=== PATIENT | male | born 1960 | race Caucasian/White ===

== ENCOUNTER 2022-05-07 10:30 | Emergency (ER) | payer BC ==
[~2022-05-07] VITALS: Ht 170.2 cm; Wt 73.0 kg
[2022-05-07] MEDS ORDERED: PREZISTA75 MG PO (11:09)
[2022-05-07] MEDS ORDERED: NORVIR100 M1 PO (11:09)
[2022-05-07 11:14] LABS: HEMATOCRIT 39.3 % (39.0-50.0); HEMOGLOBIN 13.5 g/dl (14.0-18.0); IMMATURE GRANULOCYTES 0.1 % (0.0-5.0); MEAN CELL VOLUME 93.6 fL CALC (80.0-100.0); MEAN CORPUSCULAR HGB 32.1 pG CALC (26.0-32.0); MEAN CORPUSCULAR HGB CONC 34.4 g/dL CAL (32.0-36.0); NEUT# 5.83 thou/uL (1.82-7.42); RED BLOOD COUNT 4.2 mill/uL (4.70-6.10); RED CELL DISTRI WIDTH 11.9 % (11.5-15.5)
[2022-05-07 11:37] LABS: ALBUMIN 4.3 g/dL (3.2-5.0); ALKALINE PHOSPHATASE 73 u/l (38-126); ANION GAP 16 (6-22 (CALC)); BUN 10 mg/dL (8-23); BUN/CREATININE RATIO 12 (12-20 (CALC)); CARBON DIOXIDE 22 mmol/l (22-30); CHLORIDE 101 mmol/l (95-108); CREATININE 0.8 mg/dL (0.7-1.3); GFR FOR AFR.AMER. > 60 ML/MIN (>=60 (CALC)); GFR OTHER RACES > 60 ML/MIN (>=60 (CALC)); POTASSIUM 3.8 mmol/l (3.5-5.1); SGOT/AST 107 u/l (19-48); SODIUM 135 mmol/l (137-146)
[2022-05-07] MEDS ORDERED: AMOX/K CLAV875 M1 PO (12:24)
[2022-05-07] MEDS ORDERED: HYDROCO/APAP1 TA9 PO (12:25)
[2022-05-07] MEDS ORDERED: SILVADENE1 % EX (12:30)
[2022-05-07 12:52] VITALS: BP 112/79
== END 2022-05-07 13:01 | disposition left against medical advice (07) | DRG 935 ==
LOC: ED 10:30
PROVIDERS: Family Medicine
DX: T20.20XA Burn of second degree of head, face, and neck, unspecified site, initial encounter (principal); T20.211A Burn of second degree of right ear [any part, except ear drum], initial encounter; T31.0 Burns involving less than 10% of body surface; X04.XXXA Exposure to ignition of highly flammable material, initial encounter; Y93.H9 Activity, other involving exterior property and land maintenance, building and construction; Y92.007 Garden or yard of unspecified non-institutional (private) residence as the place of occurrence of the external cause; Z21 Asymptomatic human immunodeficiency virus [HIV] infection status; Z79.899 Other long term (current) drug therapy; Z53.29 Procedure and treatment not carried out because of patient's decision for other reasons

== ENCOUNTER 2024-10-07 23:31 | Emergency (ER) | payer MEDICARE ==
[~2024-10-07] VITALS: Ht 170.2 cm; Wt 70.0 kg
[~2024-10-07 23:31] MED LIST: AMOX/K CLAV875 M1 PO; HYDROCO/APAP1 TA9 PO; NORVIR100 M1 PO; PREZISTA75 MG PO; SILVADENE1 % EX
[2024-10-07] MEDS ORDERED: KETOROLAC TROMETHAMINE 30 MG/ML SDV IM ONE (23:55)
[2024-10-08] VITALS (37 sets, daily range): BP systolic 91–145; BP diastolic 57–85
[2024-10-08] MEDS ORDERED: MIDAZOLAM HCL 2 MG/2 ML VIAL IV ONE ×3 (00:25)
[2024-10-08] MEDS ORDERED: MORPHINE SULFATE 4 MG/ML VIAL IV ONE (00:25)
[2024-10-08] MEDS ORDERED: ONDANSETRON HCl 4 MG/2 ML SDV IV ONE (00:25)
== END 2024-10-08 08:47 | disposition home or self-care (01) ==
LOC: ED 23:31
PROC: 0RSKXZZ Reposition Left Shoulder Joint, External Approach (ICD-10-PCS; principal; 2024-10-08)
DX: M24.412 Recurrent dislocation, left shoulder (principal); Z21 Asymptomatic human immunodeficiency virus [HIV] infection status
CPT/HCPCS: J2405